=== PATIENT | female | born 1960 | race Caucasian/White ===

== ENCOUNTER 2016-10-06 21:04 | Emergency (ER) | payer OTHER ==
--- NOTE | ~2016-10-06 | CR72 ---
[facility] A Service [facility] RADIOLOGY TEXT RESULTS PATIENT: ISAAC BOLANOS LOCATION: [facility] : 64 UNIT #: [id number] AGE: [address]: Yamini Zhou APRN SEX: F ORDER DR: [id number] [place], [place] [address] [id number] E MR#: [id number] Acc #: [id number] NAME: ISAAC BOLANOS. : 1960 SEX: F STUDY DATE/TIME: 10/06/2016 21:17 UNIT: [facility] ROOM: STUDY DESCRIPTION: CR Chest Single View Portable Attending Physician: Yamini Zhou A.P.R.N. Ordering Physician: Yamini Zhou A.P.R.N. MEDICAL IMAGING REPORT This report is preliminary unless electronic signature is present EXAM Frontal chest 10/06/2016 INDICATIONS 56-year-old female with cough, congestion, short of air and fever since yesterday. Tobacco abuse for 36 years. TECHNIQUE Frontal chest performed. COMPARISON STUDIES No comparisons. FINDINGS Cardiac silhouette is within normal limits for technique. The vascularity is normal. Lungs are clear. Calcified granulomas are present. No pneumothorax or effusion. IMPRESSION 1. Negative frontal chest. We have no comparisons for this patient. Dictated by... Rigo Turk M.D. THIS IS AN ELECTRONICALLY VERIFIED REPORT Rigo Turk M.D. at 10/07/2016 10:35 AM RACHEL/fifi TD: 10/06/2016 23:12 JOB #: [id number] [facility] A Service [facility] RADIOLOGY TEXT RESULTS PATIENT: ISAAC BOLANOS LOCATION: [place] : 64 UNIT #: [id number] AGE: [address]: Yamini Zhou APRN SEX: F ORDER DR: MEDICAL IMAGING REPORT Page 1 of 1 COPY
[2016-10-06 20:13] LABS: INFLUENZA A NEG (NEG); INFLUENZA B NEG (NEG)
[~2016-10-06 21:04] MED LIST: CIPRO HC OTIC S10 ML OT; CIPRO PO; DIAZEPAM PO; HYDROCORTISONE0.9 GM TP; KEFLEX500 M1 PO; KEFLEX500 MG PO; KETOPROFEN PO; LORTAB 5/500 TA1 TA1 PO; MEDROL4 MG/DOSE- PO; PHENERGAN25 MG PO; POLYTRIM EYE DR10 ML OP; PREDNISONE PO; PREDNISONE10 MG/DOSE PO; PREDNISONE50 MG PO; PROVERA5 MG PO; TRAMADOL HCL50 M1 PO; TRIAMCINOLONE A15 G6 EXT; VISTARIL PO
== END 2016-10-06 22:05 | disposition home or self-care (01) ==
LOC: CFTX 21:04
PROVIDERS: Nurse Practitioner
DX: J06.9 Acute upper respiratory infection, unspecified (principal); F17.210 Nicotine dependence, cigarettes, uncomplicated; Z88.0 Allergy status to penicillin; Z88.1 Allergy status to other antibiotic agents
CPT/HCPCS: 71010; 87651; 87804; 99283

== ENCOUNTER 2017-01-25 18:32 | Emergency (ER) | payer OTHER ==
[~2017-01-25] VITALS: Ht 157.5 cm; Wt 108.9 kg
== END 2017-01-25 19:38 | disposition home or self-care (01) ==
LOC: CFTX 18:32 → CED 18:32 → CFTX 19:11
DX: H10.9 Unspecified conjunctivitis (principal); F17.210 Nicotine dependence, cigarettes, uncomplicated; Z88.0 Allergy status to penicillin; Z88.1 Allergy status to other antibiotic agents
CPT/HCPCS: 99283